=== PATIENT | female | born 1965 | race Caucasian/White ===

== ENCOUNTER 2016-12-14 01:05 | Emergency (ER) | payer OTHER ==
[~2016-12-14] VITALS: Ht 157.5 cm; Wt 66.2 kg
[~2016-12-14 01:05] MED LIST: LEVO0.114 PO
[2016-12-14 01:10] VITALS: BP 154/88
[2016-12-14] MEDS ORDERED: PANT40EC PO (01:12)
--- NOTE | 2016-12-14 01:14 | NUR ---
PT AMBULATED TO BED 8
--- NOTE | 2016-12-14 01:17 | NUR ---
PATIENT PRESENTS TO ED WITH FLU LIKE SYMPTOMS SINCE YESTERDAY. GENERALIZED BODY ACHES PT DENIES N/V/D; SKIN IS PINK/WARM/DRY; AAOX4 WITH EVEN AND STEADY GAIT; LUNGS CLEAR BL; HR EVEN AND REGULAR; PT DENIES ANY FEVER, CP, SOB, OR COUGH AT THIS TIME; PATIENT STATES PAIN OF 7/10 AT THIS TIME; VSS; PATIENT POSITIONED FOR COMFORT; HOB ELEVATED; BEDRAILS UP X2; BED DOWN. ER MD MADE AWARE OF PT STATUS.
[2016-12-14] MEDS ORDERED: KETOROLAC 30 MG/ML VIAL IM ONE (01:35)
--- NOTE | 2016-12-14 03:08 | NUR ---
Patient discharged with v/s stable. Written and verbal after care instructions given and explained. Patient alert, oriented and verbalized understanding of instructions. Ambulatory with steady gait. All questions addressed prior to discharge. ID band removed. Patient advised to follow up with PMD. Rx of NAPROSYN AND GUAIATUSSIN AC given. Patient educated on indication of medication including possible reaction and side effects. Opportunity to ask questions provided and answered.
[2016-12-14 03:09] VITALS: BP 124/67
== END 2016-12-14 03:09 | disposition home or self-care (01) ==
LOC: MED 01:05
DX: J20.9 Acute bronchitis, unspecified (principal); M79.1 Myalgia; E03.9 Hypothyroidism, unspecified
CPT/HCPCS: 71010; 81025; 96372; 99283; J1885; Q0092

== ENCOUNTER 2017-08-28 16:53 | Emergency (ER) | payer OTHER ==
[~2017-08-28] VITALS: Ht 154.9 cm; Wt 67.2 kg
[~2017-08-28 16:53] MED LIST changes: +PANT40EC PO
[2017-08-28] MEDS: ONDANSETRON 4 MG ODT PO ONE (19:54)
[2017-08-28] MEDS: METHOCARBAMOL 500 MG TAB PO SCH (19:54)
[2017-08-28] MEDS: MORPHINE SULFATE 4 MG/ML SYR IM ONE (19:55)
[2017-08-28 21:12] VITALS: BP 144/84
== END 2017-08-28 21:12 | disposition home or self-care (01) ==
LOC: MED 16:53
DX: M62.830 Muscle spasm of back (principal); K21.9 Gastro-esophageal reflux disease without esophagitis; E07.9 Disorder of thyroid, unspecified
CPT/HCPCS: 81002; 81025; 96372; 99283; J2270; S0119

== ENCOUNTER 2017-11-12 11:55 | Emergency (ER) | payer OTHER ==
[~2017-11-12] VITALS: Ht 157.5 cm; Wt 68.9 kg
[2017-11-12 12:02] VITALS: BP 140/77
--- NOTE | 2017-11-12 12:02 | NUR ---
TO BED # 8 AMBULATORY, REPORT GIVEN TO TELMA SIEGEL.
--- NOTE | 2017-11-12 12:07 | NUR ---
52 YO F BIB SELF W/ C/O RASHES ON BOTH ARMS AND FOOT FOR 4 WEEKS. PT WAS TOLD 4 WEEKS AGO THAT IT WAS SCABIES AND GIVEN TX, BUT PT REPORTS IT DID NOT HELP. STATES SHE IS PUTTING ATHLETES FOOT OINTMENT ON THE RASHES W/O RELIEF. PT PRESENTS W/ BL AC RASHES THAT HAVE BEEN AGGRESSIBELY SCRATCHED. PT DENIES DRUG USE AT THIS TIME. NO DRAINAGE NOTED TO THE RASH. DENIES N/V/D/FEVERS. PT AAOX4, GCS 15, CMS INTACT, RR EVEN AND UNLABORED. LUNGS BL CLEAR. ABD SOFT, NON-TENDER. AMBULATORY W/ STEADY GAIT. ER MD NOTIFIED OFPT STATUS. PT NEEDS MET. SAFETY PRECAUTIONS IN PLACE. WILL CONTINUE TO MONITOR.
[2017-11-12] MEDS ORDERED: NACL 0.9% 1,000 ML IV ONE (12:40)
[2017-11-12] MEDS ORDERED: diphenhydrAMINE 50 MG/ML VIAL IVP ONE (12:40)
[2017-11-12] MEDS ORDERED: methylPREDNISolone SS 125 MG/2 ML VIAL IVP ONE (12:40)
[2017-11-12] MEDS ORDERED: ceFAZolin 1,000 MG VIAL ONE (12:51)
--- NOTE | 2017-11-12 13:00 | NUR ---
PT RESTING COMFORTABLY IN [facility] AT THIS TIME W/ VSS, RR EVEN AND UNLABORED, PT NEEDS MET, SAFETY PRECAUTIONS IN PLACE. WILL CONTINUE TO MONITOR.
--- NOTE | 2017-11-12 14:01 | NUR ---
PT IS ASLEEP ON [facility] AT THIS TIME W/ VSS. RR EVEN AND UNLABORED. SAFETY PRECAUTIONS IN PLACE. WILL CONTINUE TO MONITOR.
[2017-11-12 15:17] VITALS: BP 130/79
--- NOTE | 2017-11-12 15:17 | NUR ---
Patient discharged with v/s stable. Written and verbal after care instructions given and explained. Patient alert, oriented and verbalized understanding of instructions. Ambulatory with steady gait. All questions addressed prior to discharge. ID band removed. Patient advised to follow up with PMD. Rx of Keflex, Hydrocortisone, and Benadryl. given. Patient educated on indication of medication including possible reaction and side effects. Opportunity to ask questions provided and answered.
== END 2017-11-12 15:17 | disposition home or self-care (01) ==
LOC: MED 11:55
DX: L30.3 Infective dermatitis (principal); K21.9 Gastro-esophageal reflux disease without esophagitis; E07.9 Disorder of thyroid, unspecified; Z79.899 Other long term (current) drug therapy
CPT/HCPCS: 96365; 96375; 99284; J0690; J1200; J2930; J7060

== ENCOUNTER 2018-02-21 18:02 | Emergency (ER) | payer OTHER ==
[~2018-02-21] VITALS: Ht 157.5 cm; Wt 65.8 kg
[2018-02-21 18:07] VITALS: BP 145/75
[2018-02-21] MEDS ORDERED: KETOROLAC 30 MG/ML VIAL IM ONE (20:00)
[2018-02-21 20:21] VITALS: BP 149/73
== END 2018-02-21 20:21 | disposition home or self-care (01) ==
LOC: MED 18:02
DX: S50.02XA Contusion of left elbow, initial encounter (principal); K21.9 Gastro-esophageal reflux disease without esophagitis; E07.9 Disorder of thyroid, unspecified; Z79.899 Other long term (current) drug therapy; W22.03XA Walked into furniture, initial encounter; Y93.89 Activity, other specified; Y92.89 Other specified places as the place of occurrence of the external cause; Y99.0 Civilian activity done for income or pay
CPT/HCPCS: 29105; 73080; 99283; J1885

== ENCOUNTER 2018-08-09 00:25 | Emergency (ER) | payer SELFPAY ==
[~2018-08-09] VITALS: Ht 160 cm; Wt 66.2 kg
[2018-08-09 00:37] VITALS: BP 145/90
--- NOTE | 2018-08-09 00:37 | NUR ---
PT TRIAGED, SENT BACK TO LOBBY AWAITING BED
--- NOTE | 2018-08-09 02:41 | NUR ---
PT AMBULATED TO BED 10
--- NOTE | 2018-08-09 02:47 | NUR ---
53 YO FEMALE COMES TO ED FOR C/O COUGH AND CONGESTION X2 DAYS. PT AAOX4, DIMINISHED BREATH SOUNDS @ BASES. PT REPORTS PRODUCTIVE COUGH WHITE SECRETIONS. ABD SOFT NON DISTENDED. SKIN WARM DRY INTACT. GURNEY LOCKED IN LOWEST POSITION. PMH: HYPOTHYROID, ASTHMA AX:NKA
[2018-08-09 04:18] VITALS: BP 128/78
--- NOTE | 2018-08-09 04:18 | NUR ---
Patient discharged with v/s stable. Written and verbal after care instructions given and explained. Patient alert, oriented and verbalized understanding of instructions. Ambulatory with steady gait. All questions addressed prior to discharge. ID band removed. Patient advised to follow up with PMD. Rx of PREDNISONE, SUDAFED given. Patient educated on indication of medication including possible reaction and side effects. Opportunity to ask questions provided and answered.
== END 2018-08-09 04:18 | disposition home or self-care (01) ==
LOC: MED 00:25
DX: J06.9 Acute upper respiratory infection, unspecified (principal); K21.9 Gastro-esophageal reflux disease without esophagitis; E03.9 Hypothyroidism, unspecified; F17.200 Nicotine dependence, unspecified, uncomplicated; Z79.899 Other long term (current) drug therapy
CPT/HCPCS: 71045; 99283; Q0092

== ENCOUNTER 2019-06-02 21:34 | Emergency (ER) | payer SELFPAY ==
[~2019-06-02] VITALS: Ht 157.5 cm; Wt 69.4 kg
[2019-06-02 21:38] VITALS: BP 129/59
--- NOTE | 2019-06-02 21:57 | NUR ---
54 Y/O F PRESENTS TO ED C/O LT SHOULDER PAIN RADIATING TO LT SHOULDER BLADE 10/10 X 1000. PT STATES SHE WAS SLEEPING WITH HER LT ARM UP AND WOKE UP WITH PAIN. PT DENIES ANY RECENT TRAUMA/INJURY TO THE SIDE. PT ABLE TO MOVE THE LT ARM BUT WITH A LOT OF PAIN. PMH: GERD, THYROID NKA
--- NOTE | 2019-06-02 22:04 | NUR ---
DR. DOW AT BEDSIDE EVALUATING PT.
[2019-06-02] MEDS ORDERED: DIAZEPAM 5 MG TAB PO ONE (22:10)
[2019-06-02] MEDS ORDERED: KETOROLAC 30 MG/ML VIAL IM ONE (22:10)
--- NOTE | 2019-06-02 22:40 | NUR ---
PT SITTING UPRIGHT ON THE SIDE OF THE BED, SHOULDER BLADE PAIN HAS DECREASED TO 8/10. BED IN LOWEST POSITION, SIDE RAIL UP X1. NO NEW NEEDS. WILL CONTINUE TO MONITOR.
[2019-06-02 23:05] VITALS: BP 138/90
--- NOTE | 2019-06-02 23:05 | NUR ---
Patient discharged with v/s stable. Written and verbal after care instructions given and explained. Patient alert, oriented and verbalized understanding of instructions. Ambulatory with steady gait. All questions addressed prior to discharge. ID band removed. Patient advised to follow up with PMD. Rx of LIDOCAINE AND VALIUM given. Patient educated on indication of medication including possible reaction and side effects. Opportunity to ask questions provided and answered.
== END 2019-06-02 23:05 | disposition home or self-care (01) ==
LOC: MED 21:34
DX: M62.838 Other muscle spasm (principal); K21.9 Gastro-esophageal reflux disease without esophagitis; E03.9 Hypothyroidism, unspecified; F17.200 Nicotine dependence, unspecified, uncomplicated; Z79.899 Other long term (current) drug therapy; Z71.6 Tobacco abuse counseling
CPT/HCPCS: 96372; 99283; J1885

== ENCOUNTER 2019-06-05 16:10 | Emergency (ER) | payer SELFPAY | END 2019-06-05 16:15 | disposition left against medical advice (07) | LOC: MED 16:10 | DX: Z00.00 Encounter for general adult medical examination without abnormal findings (principal); Z53.21 Procedure and treatment not carried out due to patient leaving prior to being seen by health care provider ==

== ENCOUNTER 2020-05-07 00:05 | Emergency (ER) | payer OTHER ==
[~2020-05-07] VITALS: Ht 157.5 cm; Wt 68.0 kg
[2020-05-07 00:10] VITALS: BP 150/85
--- NOTE | 2020-05-07 00:10 | NUR ---
TO BED AMBULATORY
--- NOTE | 2020-05-07 00:18 | NUR ---
55 YR OLD FEMALE PRESENTED TO THE ER FOR CC OF TOTAL BODY ITCHING. PT IS AOX4. PT STATES TOTAL BODY ITCHING FOR 2 DAYS. PT HAS SLIGHT RASH IN UPPER CHEST, LEFT HAND, AND RIGHT FOOT. PT STATES WAS SEEN AT [facility] APPROXIMATELY 1 WEEK AGO. PT HAS NO THROAT SWELLING. PT HAS VISIBLE EQUAL RISE AND FALL UPON RESPIRATION. PT DENIES OTHER MEDICAL COMPLAINTS. BED LOCKED IN LOWEST POSITION WITH 2 SIDE RAILLS UP FOR SAFETY. HISTORY- HYPERTHYROID, ACID REFLUX ALLERGIES- NONE
--- NOTE | 2020-05-07 00:20 | NUR ---
ERMD AT BEDSIDE FOR MEDICAL EVALUATION.
[2020-05-07] MEDS ORDERED: VANCOMYCIN 1,000 MG in DEXTROSE 5% 250 ML IV ONE (00:25)
[2020-05-07] MEDS ORDERED: VANCOMYCIN 1,000 MG VIAL ONE (00:31)
[2020-05-07 00:50] LABS: BASOPHILS # (AUTO) 0.1 K/uL (0.00-0.22); BASOPHILS % (AUTO) 0.8 % (0.0-2.0); EOSINOPHILS # (AUTO) 0.3 K/uL (0-0.4); EOSINOPHILS % (AUTO) 2.8 % (0.0-4.0); HEMATOCRIT 47.1 % (36-48); LYMPHOCYTES # (AUTO) 2.3 K/uL (2.5-16.5); LYMPHOCYTES % (AUTO) 21.8 % (20.5-51.1); MEAN CORPUSCULAR HEMOGLOBIN 31 pg (27-31); MEAN CORPUSCULAR HGB CONC 34 g/dL (33-37); MEAN CORPUSCULAR VOLUME 90.2 fL (80-94); MONOCYTES # (AUTO) 0.7 K/uL (0.8-1.0); MONOCYTES % (AUTO) 6.5 % (1.7-9.3); NEUTROPHILS # (AUTO) 7.2 K/uL (1.8-7.7); NEUTROPHILS % (AUTO) 68.1 % (42.2-75.2); PLATELET COUNT (AUTO) 294 K/uL (140-450); RED BLOOD CELL COUNT(AUTO) 5.23 MIL/uL (4.20-5.40); RED CELL DISTRIBUTION WIDTH 15.2 % (11.6-13.7); WHITE BLOOD COUNT (AUTO) 10.5 K/uL (4.8-10.8)
--- NOTE | 2020-05-07 00:56 | NUR ---
Note fainaone in EDM - 05/07/20 at 0326 by MARIO 55 YR OLD FEMALE PRESENTED TO THE ER FOR CC OF TOTAL BODY ITCHING. PT IS AOX4. PT STATES TOTAL BODY ITCHING FOR 2 DAYS. PT HAS SLIGHT RASH IN UPPER CHEST, LEFT HAND, AND RIGHT FOOT. PT STATES WAS SEEN AT [facility] APPROXIMATELY 1 WEEK AGO. PT HAS NO THROAT SWELLING. PT HAS VISIBLE EQUAL RISE AND FALL UPON RESPIRATION. PT DENIES OTHER MEDICAL COMPLAINTS. BED LOCKED IN LOWEST POSITION WITH 2 SIDE RAILLS UP FOR SAFETY. HISTORY- HYPERTHYROID, ACID REFLUX ALLERGIES- NONE
[2020-05-07 00:58] LABS: CARBON DIOXIDE 29.3 mmol/L (21-32); POTASSIUM 3.3 mmol/L (3.5-5.1)
[2020-05-07 03:14] VITALS: BP 150/85
--- NOTE | 2020-05-07 03:14 | NUR ---
Patient AMA with v/s stable. Patient verbalized understanding. Ambulatory with steady gait. All questions addressed prior to AMA. Advised to follow up with PMD.
--- NOTE | 2020-05-07 03:14 | NUR ---
Patient does not wish to proceed with medical care recommended by DR JEWELL. Patient given information related to possible complications, up to and including , which could occur as a result of leaving hospital at this time. Patient verbalizes understanding of risks involved leaving against medical advice. Patient has signed AMA form.
--- NOTE | 2020-05-07 03:14 | NUR ---
IV removed, catheter intact and site benign. Applied folded 4x4 gauze and tape to stop bleeding.
== END 2020-05-07 03:14 | disposition left against medical advice (07) ==
LOC: MED 00:05
DX: L03.115 Cellulitis of right lower limb (principal); K21.9 Gastro-esophageal reflux disease without esophagitis; E03.9 Hypothyroidism, unspecified; Z79.899 Other long term (current) drug therapy
CPT/HCPCS: 36415; 80048; 85025; 87040; 96365; 99284; J3370; J7060